=== PATIENT | male | born 1985 | race Caucasian/White ===

== ENCOUNTER 2019-12-27 22:31 | Inpatient (IN) | payer MEDICAID ==
[~2019-12-27] VITALS: Ht 180.3 cm; Wt 63.5 kg
[2019-12-27 22:40] VITALS: BP 127/86
--- NOTE | 2019-12-27 22:43 | NUR ---
TO LOBBY A/W BED AMBULATORY
--- NOTE | 2019-12-27 23:20 | NUR ---
TO ER BED 3
--- NOTE | 2019-12-27 23:28 | NUR ---
FLU SWAB DONE, SENT TO LAB
--- NOTE | 2019-12-27 23:29 | NUR ---
PT CAME IN TO ER WITH C/O BODY ACHES, NAUSEA AND SORE THROAT STARTING TODAY. PT STATED " HE IS DROOLING A LOT". PT IS ALERT AND ABLE TO ANSWR QUESTIONS APPROPRIATELY. PAIN LEVEL AT THIS TIME IS 7/10. PT DENIES FEVER, VOMITING AND DIARRHEA AT THIS TIME. ERMD MADE AWARE OF STATUS, SAFETY MEASURES IN PLACE.
[2019-12-28] MEDS ORDERED: ALUMINUM HYD/MAG/SIMETHICONE 30 ML UDC PO ONE
[2019-12-28] MEDS ORDERED: DICYCLOMINE HCL LIQUID 10 MG/5 ML UDC PO ONE
[2019-12-28] MEDS ORDERED: LIDOCAINE VISCOUS 2% 20 ML UDC PO ONE
--- NOTE | 2019-12-28 00:22 | NUR ---
Sheeba cardenas in ED - 12/28/19 at 0110 by MEDJJ PT STATES HE HAS HAD SHORTNESS OF BREATHE, DR LION NOTIFIED. BREATHING EVEN AND UNLABORED, SPO2 95%.
[2019-12-28] MEDS ORDERED: NACL 0.9% 500 ML IV SCH (00:33)
[2019-12-28 01:19] LABS: BASOPHILS # (AUTO) 0.1 K/uL (0.00-0.22); BASOPHILS % (AUTO) 0.8 % (0.0-2.0); EOSINOPHILS # (AUTO) 0.1 K/uL (0-0.4); EOSINOPHILS % (AUTO) 0.9 % (0.0-4.0); HEMATOCRIT 45.3 % (36-52); HEMOGLOBIN 15.3 g/dL (12.0-18.0); LYMPHOCYTES # (AUTO) 1.8 K/uL (2.0-11.5); LYMPHOCYTES % (AUTO) 26.9 % (20.5-51.1); MEAN CORPUSCULAR HEMOGLOBIN 30 pg (27-31); MEAN CORPUSCULAR HGB CONC 34 g/dL (33-37); MEAN CORPUSCULAR VOLUME 87.7 fL (80-94); MONOCYTES # (AUTO) 0.8 K/uL (0.8-1.0); MONOCYTES % (AUTO) 11.1 % (1.7-9.3); NEUTROPHILS # (AUTO) 4.1 K/uL (1.8-7.7); NEUTROPHILS % (AUTO) 60.3 % (42.2-75.2); PLATELET COUNT (AUTO) 275 K/uL (140-450); RED BLOOD CELL COUNT(AUTO) 5.16 MIL/uL (4.20-6.10); RED CELL DISTRIBUTION WIDTH 13.3 % (11.6-13.7); WHITE BLOOD COUNT (AUTO) 6.8 K/uL (4.8-10.8)
--- NOTE | 2019-12-28 01:20 | NUR ---
EKG PERFORMED AT BEDSIDE
[2019-12-28 01:22] LABS: APPEARANCE,URINE CLEAR (CLEAR); BILIRUBIN,URINE 1+ (NEGATIVE); BLOOD, URINE NEGATIVE (NEGATIVE); COLOR,URINE YELLOW (YELLOW); LEUKOCYTE ESTERASE ,URINE NEGATIVE (NEGATIVE); NITRITE, URINE NEGATIVE (NEGATIVE); UGLUCOSE NEGATIVE (NEGATIVE)
[2019-12-28 01:33] LABS: PROTHROMBIN TIME 12.1 secs (10.8-13.4)
[2019-12-28 01:35] LABS: RBC,URINE 0-5 /HPF (0-5); WBC,URINE 0-5 /HPF (0-5)
[2019-12-28 01:36] LABS: ALBUMIN 4.5 g/dL (3.4-5.0); ANION GAP 13.7 (8-16); POTASSIUM 3.7 mmol/L (3.5-5.1); TOTAL BILIRUBIN 0.8 mg/dL (0.0-1.0)
--- NOTE | 2019-12-28 01:40 | NUR ---
PT STATES HE HAS PAIN IN NECK 08/05, DR LION MADE AWARE
--- NOTE | 2019-12-28 02:20 | NUR ---
PATIENT ALERT AND AWAKE, BREATHING EVEN AND UNLABORED
[2019-12-28] MEDS ORDERED: MORPHINE SULFATE 2 MG/ML SYR IVP ONE (02:35)
[2019-12-28] MEDS ORDERED: VANCOMYCIN 1,000 MG in DEXTROSE 5% 250 ML IV ONE (03:00)
[2019-12-28] MEDS ORDERED: cefTRIAXone 1,000 MG VIAL ONE (03:00)
--- NOTE | 2019-12-28 03:30 | NUR ---
PATIENT ALERT AND AWAKE, BREATHING EVEN AND UNLABORED
[2019-12-28] MEDS ORDERED: NACL 0.9% 1,000 ML IV SCH (03:51)
[2019-12-28] MEDS ORDERED: DOCUSATE SODIUM 100 MG GELCAP PO PRN (03:55)
[2019-12-28] MEDS ORDERED: LORazepam 2 MG/ML VIAL IM/IVP PRN (03:55)
[2019-12-28] MEDS ORDERED: ACETAMINOPHEN 325 MG TAB PO PRN (03:55)
[2019-12-28] MEDS ORDERED: MORPHINE SULFATE 2 MG/ML SYR IVP PRN (03:55)
[2019-12-28] MEDS ORDERED: ONDANSETRON 4 MG/2 ML VIAL IM/IVP PRN (03:55)
[2019-12-28] MEDS ORDERED: ZOLPIDEM 5 MG TAB PO PRN (03:55)
--- NOTE | 2019-12-28 04:21 | NUR ---
CALL RECEIVED FROM MIRIAN GUT CARRIER FROM [facility]. REPORT GIVEN ABOUT PATIENT STATUS AND UPDATES. GUT CARRIER REQUESTED FURTHER INFORMATION, WAS INFORMED THAT THE DOCTOR MUST TALK TO DOCTOR LION BY PHONE. NUMBER GIVEN FOR CALLBACK.
[2019-12-28] MEDS ORDERED: VANCOMYCIN 1,000 MG VIAL ONE (04:22)
[2019-12-28 04:23] LABS: BARBITURATE, URINE NEG. ng/ml (NEG <=200); BENZODIAZEPINE, URINE NEG. ng/mL (NEG <=200); CANNABINOID, URINE POS. ng/mL (NEG <=50); COCAINE, URINE NEG. ng/mL (NEG <=300); OPIATE, URINE NEG. ng/mL (NEG <=2000); PHENCYCLIDINE SCREEN,URINE NEG. ng/mL (NEG <=25)
--- NOTE | 2019-12-28 04:30 | NUR ---
PATIENT ALERT AND AWAKE, BREATHING EVEN AND UNLABORED
[2019-12-28 04:43] LABS: FREE T4 (FREE THYROXINE) 1.3 ng/dL (0.76-1.46); MAGNESIUM 2.1 mg/dL (1.8-2.4); PHOSPHORUS 3.1 mg/dL (2.5-4.9); THYROID STIMULATING HORMONE 0.89 uIU/mL (0.34-3.74)
[2019-12-28] MEDS ORDERED: methylPREDNISolone SS 125 MG/2 ML VIAL IVP SCH (05:00)
--- NOTE | 2019-12-28 05:10 | NUR ---
PATIENT STATES HE HAS PAIN 9/10 IN HIS NECK AGAIN
--- NOTE | 2019-12-28 05:33 | NUR ---
PATIENT ALERT AND AWAKE, BREATHING EVEN AND UNLABORED. PT STILL SPITTING UP MUCUS FROM DROOL.
[2019-12-28] MEDS ORDERED: DEXT 5% /NACL 0.9% 1,000 ML IV SCH (05:40)
--- NOTE | 2019-12-28 06:30 | NUR ---
PATIENT ALERT AND AWAKE, BREATHING EVEN AND UNLABORED
[2019-12-28] MEDS ORDERED: AMYL-40 PO (06:35)
[2019-12-28 07:05] VITALS: BP 134/88
--- NOTE | 2019-12-28 07:05 | NUR ---
RECEIVED PT FROM ER NURSE, JIM, PT IS AWAKE, ALERT AND ORIENTED X4, AMBULATED TO THE BED FROM THE BATHROOM, STEADY GAIT, PERIPHERAL LINES ON THE RT HAND G.. 20 ON SALINE LOCK AND ON THE LEFT HAND G. 20 WITH D5NS INFUSING AT 100ML/HR, PT DENEIS PAIN AND NO SIGN OF DISTRESS NOTED, V/S TAKEN AND IS STABLE. WILL MONITOR PT.
--- NOTE | 2019-12-28 07:05 | NUR ---
Patient will be admitted to care of DR IVORY. Admited to [facility]. Will go to room 106B. Belongings list completed. Report to KATHY GARCIA.
--- NOTE | 2019-12-28 07:30 | NUR ---
MRSA SWAB DONE TO PT NOW AND SAMPLE SENT TO LAB.
[2019-12-28] MEDS ORDERED: BENZOCAINE 20% 57 GM CAN MC SCH (09:50)
--- NOTE | 2019-12-28 10:00 | NUR ---
PT IS AWAKE AND IS WATCHING TV NOW, NO SIGN OF DISTRESS NOTED.
[2019-12-28 12:00] VITALS: BP 128/84
--- NOTE | 2019-12-28 12:40 | NUR ---
PT WAS GIVEN LUNCH TRAY AND WAS ASKED IF HOW THE SWALLOWING AND PT DENIES PAIN IN SWALLOWING. WILL MONITOR PT.
--- NOTE | 2019-12-28 14:00 | NUR ---
PT WAS SEEN BY DR. ROLANDO MD CAME TO PT'S ROOM AND SPOKE TO PT.
[2019-12-28] MEDS: HYDROcodone/APAP 5/325 MG 1 TAB TAB PO PRN ×2 (14:28→21:10)
[2019-12-28] MEDS: BENZOCAINE/MENTHOL 1 LOZ MM PRN ×2 (14:28→21:15)
--- NOTE | 2019-12-28 14:28 | NUR ---
PT WAS GIVEN CEPACOL AND NORCO NOW FOR C/O PAIN RATE OF 6/10, WILL RE-ASSESS AND MONITOR PT.
[2019-12-28] MEDS: NACL 0.9% 1,000 ML IV SCH (15:10)
[2019-12-28] MEDS: methylPREDNISolone SS 40 MG/ML VIAL IVP SCH (18:52)
--- NOTE | 2019-12-28 18:52 | NUR ---
PT WAS GIVEN SOLU-MEDROL NOW VIA IV PUSH, WILL MONITOR PT.
--- NOTE | 2019-12-28 19:00 | NUR ---
ENDORSED PT TO WELDER PRODUCTION LINE ARC NURSE FOR CONTINUITY OF CARE.
--- NOTE | 2019-12-28 19:01 | NUR ---
RECD. RESTING IN BED, AWAKE, A/OX4. RESPIRATION EVEN AND UNLABORED. IV OF NS AT 60 ML/HR LEFT HAND G20, SALINE LOCK AT THE RIGHT HAND G20, PATENT AND INTACT. STATED HE HAS SOME PAIN WHEN HE SWALLOW, 02/02. PLAN OF CARE FOR THE SHIFT DISCUSSED. VERBALIZED UNDERSTANDING.
--- NOTE | 2019-12-28 21:08 | NUR ---
RECEIVED PT FROM AM SHIFT ON ROOM AIR WITH AN SP02 OF 97% AND A CLEAR BREATH SOUNDS. NO RESPIRATORY DISTRESS NOTED AT THIS TIME. WILL CONTINUE TO MONITOR PT.
--- NOTE | 2019-12-28 21:15 | NUR ---
UNABLE TO SLEEP, MEDICATED WITH AMBIEN PER MD ORDER.
--- NOTE | 2019-12-28 21:18 | NUR ---
WATCHING TV. DUE PO MEDICATIONS GIVEN.
--- NOTE | 2019-12-28 21:29 | NUR ---
Patient's Plan of Care was discussed and reviewed with VE TEACHER: AKASH CORDOBA
[2019-12-28] MEDS: HYDROcodone/APAP 7.5/325 MG 1 TAB PO PRN (22:26)
[2019-12-29] VITALS: BP 130/84
--- NOTE | 2019-12-29 | NUR ---
SLEEPING COMFORTABLY IN BED.
[2019-12-29] MEDS: HYDROcodone/APAP 7.5/325 MG 1 TAB PO PRN ×2 (04:25→09:45)
--- NOTE | 2019-12-29 04:57 | NUR ---
PT ANXIOUS AND RESTLESS ,UNABLE TO SLEEP, ASKING FOR MEDS TO CALM HIM DOWN, ATIVAN 1MG IVP GIVEN ,FLUSHED WITH NS ,CONTINUE TO MONITOR.
--- NOTE | 2019-12-29 05:45 | NUR ---
RESTING IN BED, NO ANXIETY NOTED.
[2019-12-29] MEDS: methylPREDNISolone SS 40 MG/ML VIAL IVP SCH (06:15)
[2019-12-29 06:57] LABS: ANION GAP 14.5 (8-16); BASOPHILS % (AUTO) 0.2 % (0.0-2.0); CARBON DIOXIDE 26.8 mmol/L (21-32); CREATININE 1.1 mg/dL (0.6-1.3); HEMATOCRIT 44.2 % (36-52); HEMOGLOBIN 14.7 g/dL (12.0-18.0); LYMPHOCYTES % (AUTO) 8.2 % (20.5-51.1); MEAN CORPUSCULAR HEMOGLOBIN 29 pg (27-31); MEAN CORPUSCULAR HGB CONC 33 g/dL (33-37); MEAN CORPUSCULAR VOLUME 87.7 fL (80-94); MONOCYTES # (AUTO) 1.2 K/uL (0.8-1.0); MONOCYTES % (AUTO) 10.4 % (1.7-9.3); NEUTROPHILS # (AUTO) 9.7 K/uL (1.8-7.7); NEUTROPHILS % (AUTO) 81.2 % (42.2-75.2); PLATELET COUNT (AUTO) 272 K/uL (140-450); POTASSIUM 4.3 mmol/L (3.5-5.1); RED BLOOD CELL COUNT(AUTO) 5.04 MIL/uL (4.20-6.10); RED CELL DISTRIBUTION WIDTH 13.1 % (11.6-13.7); WHITE BLOOD COUNT (AUTO) 11.9 K/uL (4.8-10.8)
[2019-12-29 06:59] LABS: MAGNESIUM 1.8 mg/dL (1.8-2.4); PHOSPHORUS 3.4 mg/dL (2.5-4.9)
--- NOTE | 2019-12-29 07:15 | NUR ---
CONDITION REMAIN STABLE. ENDORSED TO AM SHIFT NURSE FOR CONTINUITY OF CARE.
--- NOTE | 2019-12-29 07:16 | NUR ---
RECEIVED BEDSIDE REPORT FROM NIGHT NURSE, PT IS AAOX4, PT WAS ASLEEP BUT AROSE WHEN NAMED CALLED, PT HAS LFR20G RUNNING NORMAL SALINE AT 60ML/H, RH20G SALINE LOCK, UPDATE WHITEBOARD, SAFETY MEASURES IN PLACE, PT IS STABLE, WILL CONTINUE TO MONITOR.
--- NOTE | 2019-12-29 07:36 | NUR ---
PATIENT HAS BEEN SCREENED AND CATEGORIZED HIGH NUTRITION RISK. PATIENT WILL BE SEEN WITHIN 1-2 DAYS OF ADMISSION. 12/29/[address]
[2019-12-29 08:00] VITALS: BP 108/77
[2019-12-29] MEDS ORDERED: CEFU-18 PO (08:33)
[2019-12-29] MEDS ORDERED: METH4TAB27 PO (08:33)
[2019-12-29] MEDS ORDERED: BENZ1LOZ93 MM (08:33)
[2019-12-29] MEDS ORDERED: LORA10TA19 PO (09:21)
[2019-12-29] MEDS: NACL 0.9% 1,000 ML IV SCH (09:39)
--- NOTE | 2019-12-29 09:45 | NUR ---
GAVE PT NORCO FOR THROAT PAIN OF 6/10, PT IS OTHERWISE STABLE, FAMILY MEMBERS AT BEDSIDE, CALL LIGHT WITHIN REACH.
--- NOTE | 2019-12-29 11:39 | NUR ---
RESIDENTIAL BUILDER assessment/discharge plan Basic Screen: Yes Name: Clint Avila Relationship: friend Pre-Admission Living Arrangements: Lives Alone Prior ADL Independent Current Home Health Name/Tel: N/A Current DME/02 Name/Tel: N/A Current Hospice Name/Tel: N/A Current Dialysis Name/Tel: N/A Healthcare Decision Maker: Patient Tentative Discharge Plan Summary: Patient is a 34 year old male admitted for epiglottitis. I met with patient and patient's sister Sandy at bedside. Patient alert and oriented x4. Patient stated he lives alone at [address] and plans to return home upon discharge. Patient goes to [facility] ([place], [place]) for medical care. He does not have any difficulty filling prescriptions at pharmacy. He receives mental health services at [facility] ([place], [place]) for social anxiety. He told me he is not taking medication for social anxiety and is not interested on taking medication for social anxiety. He denied alcohol/substance abuse. He drives to [facility]. Patient was hesitant to answer questions despite me providing him with an explanation of assessment/discharge multiple times. He appeared to get defensive when I was verifying his demographics, despite me explaining to him why this is important. Bit Sharpener and/or Medical Doctor will follow up as needed. Signature: ALFREDO Loya Date: Dec 29, 2019
--- NOTE | 2019-12-29 12:10 | NUR ---
Remained nurse to follow up and document immunization on discharge assessment.
--- NOTE | 2019-12-29 13:00 | NUR ---
PT RESTING IN BED, NO SIGNS OF DISTRESS NOTED, CALL LIGHT WITHIN REACH.
[2019-12-29] MEDS ORDERED: ACET-8386 PO (14:12)
--- NOTE | 2019-12-29 14:46 | NUR ---
DISCHARGE PLANNING: A 34 Y/O MALE PATIENT FROM HOME, WHO CAME IN DUE TO SHORTNESS OF BREATH X 1 DAY. PAST MEDICAL HISTORY OF SOCIAL ANXIETY AND CHRONIC PANCREATITIS 2/2 TO ETOH ABUSE. INITIAL DIAGNOSIS OF EPIGLOTTITIS. CURRENT LABS INCLUDE WBC 11.9, H/H 14.7/44.2, NA/K 140/4.3, BUN/CREA 12/1.1. MRSA NARES AND BLOOD C/S PENDING. GI CONSULT IN PLACE. CT NECK SHOWED NORMAL EPIGLOTTIS. ON ROCEPHIN AND SOLU MEDROL. DC PLAN TO HOME ONCE STABLE.
--- NOTE | 2019-12-29 15:30 | NUR ---
PT DISCHARGED, PT REFUSED TO SIGN THE HOSPITAL'S COPY OF DISCHARGE INSTRUCTIONS, PT RECEIVED DISCHARGE INSTRUCTIONS AND PRESCRIPTION, PT REFUSED FLU VACCINE, PT WALKED OUT OF THE HOSPITAL WITH A STEADY GAIT, PT IS STABLE.
== END 2019-12-29 15:31 | disposition home or self-care (01) | DRG 113 ==
LOC: MED 22:31 → EDBD 12-28 03:54 → MTU 12-28 03:54
PROVIDERS: ADMIT General Practice; ATTEND General Practice
DX: J30.9 Allergic rhinitis, unspecified (principal); D72.829 Elevated white blood cell count, unspecified; F12.10 Cannabis abuse, uncomplicated; F41.9 Anxiety disorder, unspecified; T38.0X5A Adverse effect of glucocorticoids and synthetic analogues, initial encounter; Z88.8 Allergy status to other drugs, medicaments and biological substances; Z71.51 Drug abuse counseling and surveillance of drug abuser; Y92.89 Other specified places as the place of occurrence of the external cause
CPT/HCPCS: 36415; 70360; 70490; 71045; 80048; 80053; 80305; 81001; 82150; 83036; 83605; 83690; 83735; 83880; 84100; 84439; 84443; 84484; 85025; 85610; 85730; 87040; 87081; 87804; 93005; 96361; 96365; 96366; 96367; 96375; 99285; J0696; J2060; J2270; J2920; J2930; J3370; J7030; J7042; J7060; Q0092

== ENCOUNTER 2020-02-26 15:17 | Emergency (ER) | payer MEDICAID, SELFPAY ==
[~2020-02-26] VITALS: Ht 177.8 cm; Wt 63.5 kg
[~2020-02-26 15:17] MED LIST: ACET-8386 PO; AMYL-40 PO; BENZ1LOZ93 MM; CEFU-18 PO; LORA10TA19 PO; METH4TAB27 PO
[2020-02-26 15:37] VITALS: BP 136/87
[2020-02-26] MEDS ORDERED: IBUPROFEN 600 MG TAB PO ONE (17:00)
[2020-02-26 18:35] VITALS: BP 120/80
== END 2020-02-26 18:35 | disposition home or self-care (01) ==
LOC: MED 15:17 → EEVIPCON 15:17 → MED 18:35
DX: B34.9 Viral infection, unspecified (principal); Z20.828 Contact with and (suspected) exposure to other viral communicable diseases; Z79.899 Other long term (current) drug therapy; Z88.8 Allergy status to other drugs, medicaments and biological substances
CPT/HCPCS: 36415; 99283; U0002

== ENCOUNTER 2020-05-07 15:34 | Emergency (ER) | payer MEDICAID, SELFPAY ==
[~2020-05-07] VITALS: Ht 177.8 cm; Wt 62.6 kg
[2020-05-07 15:47] VITALS: BP 128/83
--- NOTE | 2020-05-07 16:00 | NUR ---
34 YO MALE C/O R FINGER LAC X TODAY PT WAS WORKING WITH TILES AND CUT HIMSELF PMH- PANCREATITIS
[2020-05-07] MEDS ORDERED: MORPHINE SULFATE 4 MG/ML SYR IM ONE (16:10)
--- NOTE | 2020-05-07 16:37 | NUR ---
applied nonadherent and gauze to right 2nd digit and applied finger splint to right 2nd digit without any issues.
--- NOTE | 2020-05-07 16:38 | NUR ---
TETANUS GIVEN AND CONSET SIGNED.
[2020-05-07 16:47] VITALS: BP 128/83
== END 2020-05-07 16:48 | disposition home or self-care (01) ==
LOC: MED 15:34
DX: S61.210A Laceration without foreign body of right index finger without damage to nail, initial encounter (principal); F17.200 Nicotine dependence, unspecified, uncomplicated; F12.90 Cannabis use, unspecified, uncomplicated; Z88.6 Allergy status to analgesic agent; Z79.899 Other long term (current) drug therapy; W45.8XXA Other foreign body or object entering through skin, initial encounter; Y93.89 Activity, other specified; Y92.89 Other specified places as the place of occurrence of the external cause; Y99.8 Other external cause status
CPT/HCPCS: 12002; 90471; 90715; 96372; 99283; J2270; 99284

== ENCOUNTER 2021-02-10 13:12 | Emergency (ER) | payer MEDICAID ==
[~2021-02-10] VITALS: Ht 180.3 cm; Wt 63.5 kg
[2021-02-10 13:16] VITALS: BP 126/98
--- NOTE | 2021-02-10 13:20 | NUR ---
35 YO M BIB SELF FOR C/C OF 10/10 LEFT ANKLE PAIN POST INJURY IN NOVEMBER 2020. PT WAS DX WITH A "PARTIAL ACHILLES HEAL" TEAR. PT DENIES OTC PAIN MEDS TODAY. PT HAS LIMITED ROM AND IS UNABLE TO PUT PRESSURE ON FOOT. PEDAL PULSES EQUAL AND REGULAR. REDNESS AND SWELLING VISUALIZED IN L ANKLE. MED HX: PANCREATITIS
--- NOTE | 2021-02-10 13:57 | NUR ---
SASHA SAAVEDRA AT BEDSIDE EVALUAATING PT
--- NOTE | 2021-02-10 13:58 | NUR ---
PT AMBULATED WITH CRUTCHES TO BED 11.
[2021-02-10] MEDS ORDERED: HYDROcodone/APAP 5/325 MG 1 TAB TAB PO ONE (14:15)
--- NOTE | 2021-02-10 14:19 | NUR ---
Xray at bedside.
--- NOTE | 2021-02-10 14:45 | NUR ---
EMT at bedside with crutches
--- NOTE | 2021-02-10 14:58 | NUR ---
PT PLACED IN LEFT ANKLE STIRRUP SPLINT CMS WNL BEFORE AND AFTER. PT GIVEN CRUTCHES AND CRUTCHES ADJUSTED TO PT SIZE AND HEIGHT, PT STATES THAT THEY ALREADY KNOW HOW USE CRUTCHES, PT DEMONSTRATED PROPER USE OF CRUTCHES AND STATES THAT THET FEEL COMFORTABLE WHILE USING CRUTCHES.
[2021-02-10] MEDS ORDERED: ACET-8386 PO (14:59)
[2021-02-10 15:10] VITALS: BP 126/98
--- NOTE | 2021-02-10 15:10 | NUR ---
PT D/C AMBULATED OUT OF THE ER IN A STABLE CONDITION IN NO ACUTE DISTRESS, BREATHING EVEN/UNLABORED C/O NO PAIN. PT STATED HE UNDERSTOOD THE TEACHING. PRESCRIBED HYDROCODONE/ACETAMINOPHEN 5-325. PT HAD TRANSPORTATION TO [facility].
== END 2021-02-10 15:10 | disposition home or self-care (01) ==
LOC: MED 13:12
DX: G89.29 Other chronic pain (principal); M25.572 Pain in left ankle and joints of left foot; R03.0 Elevated blood-pressure reading, without diagnosis of hypertension
CPT/HCPCS: 29515; 73610; 99283